=== PATIENT | male | born 1965 | race African-American/Black ===

== ENCOUNTER 2017-06-05 11:33 | Emergency (ER) | payer MEDICAID ==
[~2017-06-05] VITALS: Ht 175.3 cm; Wt 75.0 kg
[2017-06-05 11:35] VITALS: BP 118/79
== END 2017-06-05 17:24 | disposition left against medical advice (07) ==
LOC: ER 11:44
DX: R52 Pain, unspecified (principal); Z53.21 Procedure and treatment not carried out due to patient leaving prior to being seen by health care provider

== ENCOUNTER 2017-08-25 15:52 | Emergency (ER) | payer MEDICAID ==
[~2017-08-25] VITALS: Ht 172.7 cm; Wt 70.0 kg
[2017-08-25] MEDS ORDERED: ACETAMINOPHEN 500MG TABLET PO ONE (19:15)
[2017-08-25] MEDS ORDERED: IBUPROFEN 600MG TABLET PO ONE (19:15)
[2017-08-25 20:30] VITALS: BP 140/65
== END 2017-08-25 20:30 | disposition home or self-care (01) ==
LOC: ER 16:00
DX: M06.862 Other specified rheumatoid arthritis, left knee (principal); M06.861 Other specified rheumatoid arthritis, right knee; G89.29 Other chronic pain; F32.9 Major depressive disorder, single episode, unspecified; F12.10 Cannabis abuse, uncomplicated
CPT/HCPCS: 99283

== ENCOUNTER 2017-08-29 20:28 | Emergency (ER) | payer MEDICAID ==
[~2017-08-29] VITALS: Ht 172.7 cm; Wt 68.3 kg
[2017-08-30] MEDS ORDERED: IBUPROFEN 600MG TABLET PO ONE (05:15)
[2017-08-30 06:30] VITALS: BP 138/83
== END 2017-08-30 06:57 | disposition home or self-care (01) ==
LOC: ER 21:28
DX: M25.561 Pain in right knee (principal); M25.562 Pain in left knee; M79.671 Pain in right foot; M25.571 Pain in right ankle and joints of right foot; F12.10 Cannabis abuse, uncomplicated; W07.XXXA Fall from chair, initial encounter; Y93.89 Activity, other specified; Y92.89 Other specified places as the place of occurrence of the external cause
CPT/HCPCS: 73562; 73564; 73610; 73630; 99284; Z7610

== ENCOUNTER 2018-03-01 11:36 | Emergency (ER) | payer MEDICAID ==
[~2018-03-01] VITALS: Ht 170.2 cm; Wt 76.0 kg
[2018-03-01] MEDS ORDERED: KETOROLAC 60MG/2ML VIAL IM ONE (19:00)
[2018-03-02 00:57] VITALS: BP 131/81
== END 2018-03-02 00:59 | disposition home or self-care (01) ==
LOC: ER 12:15
DX: S80.211A Abrasion, right knee, initial encounter (principal); T51.91XA Toxic effect of unspecified alcohol, accidental (unintentional), initial encounter; M79.18 Myalgia, other site; F31.9 Bipolar disorder, unspecified; F20.9 Schizophrenia, unspecified; X58.XXXA Exposure to other specified factors, initial encounter; Y93.89 Activity, other specified; Y92.89 Other specified places as the place of occurrence of the external cause; Y99.8 Other external cause status
CPT/HCPCS: 36415; 96372; 99283; G0482; J1885

== ENCOUNTER 2018-03-04 11:20 | Emergency (ER) | payer MEDICAID ==
[~2018-03-04] VITALS: Ht 177.8 cm; Wt 75.0 kg
[2018-03-04 11:24] VITALS: BP 156/100
[2018-03-04] MEDS ORDERED: BACITRACIN ZINC OINT UDPKT TOP ONE (12:30)
[2018-03-04] MEDS ORDERED: IBUPROFEN 800MG TABLET PO ONE (12:30)
== END 2018-03-04 14:26 | disposition home or self-care (01) ==
LOC: ER 11:20
DX: M25.561 Pain in right knee (principal); F31.9 Bipolar disorder, unspecified; F20.9 Schizophrenia, unspecified; F17.200 Nicotine dependence, unspecified, uncomplicated; F10.20 Alcohol dependence, uncomplicated; Z98.890 Other specified postprocedural states; Y90.9 Presence of alcohol in blood, level not specified
CPT/HCPCS: 99283

== ENCOUNTER 2019-01-12 14:03 | Emergency (ER) | payer MEDICAID ==
[~2019-01-12] VITALS: Ht 172.7 cm; Wt 68.0 kg
[2019-01-12] MEDS ORDERED: KETOROLAC 60MG/2ML VIAL IM STA (15:57)
[2019-01-12] MEDS ORDERED: BACITRACIN ZINC OINT UDPKT TOP ONE (16:00)
[2019-01-12] MEDS ORDERED: BACITRACIN 15GM TUBE TOP ONE (16:15)
[2019-01-12 16:43] VITALS: BP 138/78
== END 2019-01-12 16:53 | disposition home or self-care (01) ==
LOC: ER 14:03
DX: Z48.00 Encounter for change or removal of nonsurgical wound dressing (principal); S80.812A Abrasion, left lower leg, initial encounter; S80.811A Abrasion, right lower leg, initial encounter; X58.XXXA Exposure to other specified factors, initial encounter; Y93.9 Activity, unspecified; Y92.9 Unspecified place or not applicable; F31.9 Bipolar disorder, unspecified; F20.9 Schizophrenia, unspecified
CPT/HCPCS: 96372; 99283; J1885

== ENCOUNTER 2019-01-20 10:26 | Emergency (ER) | payer MEDICAID ==
[~2019-01-20] VITALS: Ht 162.6 cm; Wt 59.0 kg
[2019-01-20 10:29] VITALS: BP 131/85
== END 2019-01-20 13:16 | disposition left against medical advice (07) ==
LOC: ER 10:26
DX: F10.129 Alcohol abuse with intoxication, unspecified (principal); F31.9 Bipolar disorder, unspecified; F20.9 Schizophrenia, unspecified; F17.200 Nicotine dependence, unspecified, uncomplicated; Y90.9 Presence of alcohol in blood, level not specified
CPT/HCPCS: 99283

== ENCOUNTER 2019-02-09 16:00 | Emergency (ER) | payer MEDICAID ==
[~2019-02-09] VITALS: Ht 180.3 cm; Wt 60.0 kg
[2019-02-09 17:54] LABS: CLARITY URINE CLEAR (CLEAR); COLOR URINE YELLOW (YELLOW); KETONES URINE NEGATIVE (NEGATIVE); LEUKOCYTE ESTERASE URINE NEGATIVE (NEGATIVE); NITRITE URINE NEGATIVE (NEGATIVE); OCCULT BLOOD URINE NEGATIVE (NEGATIVE); PH URINE 5.5 (4.5-8.0); PROTEIN URINE NEGATIVE (NEGATIVE); SPECIFIC GRAVITY URINE 1.006 (1.005-1.030); UROBILINOGEN URINE 0.2 E.U./dL (0.2-1.0)
[2019-02-09 18:04] LABS: *AMPHETAMINES SCREEN URINE NEGATIVE (NEGATIVE); *BARBITURATES SCREEN URINE NEGATIVE (NEGATIVE); *BENZODIAZEPINES SCREEN URINE NEGATIVE (NEGATIVE); CANNABINOID URINE SCREEN PRESUMTIVE POSITIVE (NEGATIVE); METHADONE URINE SCREEN NEGATIVE (NEGATIVE); OPIATES URINE SCREEN PRESUMTIVE POSITIVE (NEGATIVE); PHENCYCLIDINE URINE SCREEN NEGATIVE (NEGATIVE)
[2019-02-09 18:05] LABS: *COCAINE SCREEN URINE NEGATIVE (NEGATIVE)
[2019-02-09 18:08] LABS: EOSINOPHILS % 3.5 % (0.0-5.0); HEMATOCRIT. 41.1 % (42.0-52.0); HEMOGLOBIN. 14.1 g/dL (14.0-18.0); MEAN CORPUSCULAR HEMOGLOBIN 34.1 pg (28.0-32.0); MEAN CORPUSCULAR VOLUME 99.1 fL (80.0-94.0); MEAN PLATELET VOLUME 7.4 fl (7.4-10.4); MONOCYTES % 8.1 % (2.0-8.0); NEUTROPHILS % 46.4 % (40.0-76.0); PLATELET 250 x1000/uL (130-400); RED BLOOD CELL COUNT 4.15 mill/uL (4.7-6.1); RED CELL DISTRIBUTION WIDTH 14.2 % (11.6-14.6)
[2019-02-09 18:14] LABS: CHLORIDE 101 mEq/L (98-107)
[2019-02-09] MEDS: TETANUS, DIPHTHERIA, PERTUSSIS VAC/PF 0.5ML (>7YR OLD) IM ONE (18:15)
[2019-02-09] MEDS ORDERED: BACITRACIN ZINC OINT UDPKT TOP ONE (18:15)
[2019-02-09 18:25] LABS: ETHANOL BLOOD 424 mg/dL
[2019-02-09 19:37] VITALS: BP 139/91
[2019-02-09] MEDS: BACITRACIN 15GM TUBE TOP NR (20:00)
== END 2019-02-09 20:55 | disposition home or self-care (01) ==
LOC: ER 16:36
DX: G93.40 Encephalopathy, unspecified (principal); T51.91XA Toxic effect of unspecified alcohol, accidental (unintentional), initial encounter; Y92.89 Other specified places as the place of occurrence of the external cause
CPT/HCPCS: 36415; 80053; 80305; 80320; 81003; 85025; 90471; 90715; 99283; Z7610; G0480

== ENCOUNTER 2019-05-06 22:51 | Emergency (ER) | payer MEDICAID ==
[~2019-05-06] VITALS: Ht 175.3 cm; Wt 66.0 kg
[2019-05-07] MEDS ORDERED: KETOROLAC 60MG/2ML VIAL IM ONE
[2019-05-07] MEDS ORDERED: TETANUS, DIPHTHERIA, PERTUSSIS VAC/PF 0.5ML (>7YR OLD) IM ONE (01:15)
[2019-05-07] MEDS ORDERED: BACITRACIN ZINC OINT UDPKT TOP ONE (01:15)
[2019-05-07 02:18] VITALS: BP 126/89
== END 2019-05-07 02:22 | disposition home or self-care (01) ==
LOC: ER 22:57
DX: S80.211A Abrasion, right knee, initial encounter (principal); S60.511A Abrasion of right hand, initial encounter; F10.229 Alcohol dependence with intoxication, unspecified; F12.10 Cannabis abuse, uncomplicated; F17.200 Nicotine dependence, unspecified, uncomplicated; X58.XXXA Exposure to other specified factors, initial encounter; Y93.01 Activity, walking, marching and hiking; Y92.89 Other specified places as the place of occurrence of the external cause; Y99.8 Other external cause status; Y90.9 Presence of alcohol in blood, level not specified
CPT/HCPCS: 71045; 73562; 90471; 90715; 96372; 99283; J1885; Z7610

== ENCOUNTER 2019-05-22 13:09 | Emergency (ER) | payer MEDICAID ==
[~2019-05-22] VITALS: Ht 175.3 cm; Wt 73.0 kg
[2019-05-22] MEDS ORDERED: BACITRACIN ZINC OINT UDPKT TOP ONE (14:30)
[2019-05-22] MEDS ORDERED: IBUPROFEN 600MG TABLET PO ONE (14:30)
[2019-05-22] MEDS ORDERED: ACETAMINOPHEN 325MG TABLET PO STA (16:08)
[2019-05-22 16:31] VITALS: BP 135/90
== END 2019-05-22 16:35 | disposition home or self-care (01) ==
LOC: ER 13:21
DX: S80.212A Abrasion, left knee, initial encounter (principal); S80.211A Abrasion, right knee, initial encounter; S80.02XA Contusion of left knee, initial encounter; S80.01XA Contusion of right knee, initial encounter; S62.524A Nondisplaced fracture of distal phalanx of right thumb, initial encounter for closed fracture; I10 Essential (primary) hypertension; F20.9 Schizophrenia, unspecified; F12.10 Cannabis abuse, uncomplicated; W01.0XXA Fall on same level from slipping, tripping and stumbling without subsequent striking against object, initial encounter; Y93.89 Activity, other specified; Y92.488 Other paved roadways as the place of occurrence of the external cause
CPT/HCPCS: 29125; 73130; 73560; 99284

== ENCOUNTER 2019-07-08 12:39 | Emergency (ER) | payer MEDICAID ==
[~2019-07-08] VITALS: Ht 170.2 cm; Wt 77.0 kg
[2019-07-08 15:28] VITALS: BP 131/81
== END 2019-07-08 18:45 | disposition left against medical advice (07) ==
LOC: ER 13:06
DX: Z53.21 Procedure and treatment not carried out due to patient leaving prior to being seen by health care provider (principal); I10 Essential (primary) hypertension; F31.9 Bipolar disorder, unspecified; F20.9 Schizophrenia, unspecified